=== PATIENT | female | born 1980 | race African-American/Black ===

== ENCOUNTER 2016-05-02 12:15 | Emergency (ER) | payer MEDICARE, OTHER ==
[~2016-05-02 12:15] MED LIST: *UNABLE1; ASAB PO; AUG875 PO; BLOOD PRESSURE RX PO; BRILINTA90 MG PO; CARDCD180 PO; CARDIZEM LA180 MG PO; CAT1 PO; CHOLESTEROL PO; COREG6 PO; CRESTOR5 MG PO; ELIQUIS 5 MG TAB5 MG PO; FERROUS SULF325 M1 PO; INSNOVN SC; IODOSORB TOP; IRON325 MG PO; ISORDIL20 PO; ISOSORB DIN30 MG PO; KDUR20 PO; L40 PO; LEVEMFLXPN SC; LEVEMIR SC; LEVOTHYROXIN50 MCG PO; LIPITOR10 PO; LOP50 PO; LORT7 PO; MAGOX4 PO; MCZ25 PO; NEUR100 PO; NORV10 PO; NOVOLOG SC; NOVOPEN SC; NXL6 PO; PLAVIX PO; POLYTRIM OPH; PREDFORTE OPH; PRENATAL VIT OTC PO; PRIN10 PO; PROAIR HFA INH; PROVHFA INH; SYN.05 PO; VENTOLIN HFA INH; ZESTRIL10 MG PO; ZOL50 PO
[2016-10-08] MEDS ORDERED: *UNABLE3 (01:25)
[2016-10-08] MEDS ORDERED: ASAB PO (01:26)
[2016-10-08] MEDS ORDERED: VENTOLIN HFA INH (01:26)
[2016-10-08] MEDS ORDERED: COREG6 PO (01:27)
[2016-10-08] MEDS ORDERED: LISINOPRIL PO (01:28)
[2016-10-08] MEDS ORDERED: LIPITOR10 PO (01:28)
[2016-10-08] MEDS ORDERED: CAT1 PO (01:29)
[2016-10-08] MEDS ORDERED: NOVOLOG SC (13:18)
[2016-10-08] MEDS ORDERED: PLAVIX PO (13:19)
[2016-10-08] MEDS ORDERED: LEVEMIR SC (13:19)
[2016-10-08] MEDS ORDERED: ISOSORB DIN30 MG PO (13:20)
[2016-10-08] MEDS ORDERED: PRIN10 PO (13:21)
[2016-10-08] MEDS ORDERED: PERCOCET 7.5/321 TAB PO (13:22)
[2016-10-15] MEDS ORDERED: ELIQUIS 2.5 MG2.5 MG PO (14:50)
== END 2016-05-02 12:35 | disposition home or self-care (01) ==
LOC: ER 12:15
PROC: 2W3QX1Z Immobilization of Right Lower Leg using Splint (ICD-10-PCS; principal; 2016-05-02)
DX: S83.91XA Sprain of unspecified site of right knee, initial encounter (principal); W10.9XXA Fall (on) (from) unspecified stairs and steps, initial encounter; E11.9 Type 2 diabetes mellitus without complications; Z99.2 Dependence on renal dialysis; E03.9 Hypothyroidism, unspecified; I48.91 Unspecified atrial fibrillation; I25.10 Atherosclerotic heart disease of native coronary artery without angina pectoris; H54.8 Legal blindness, as defined in USA; Z95.5 Presence of coronary angioplasty implant and graft; I49.9 Cardiac arrhythmia, unspecified; I12.9 Hypertensive chronic kidney disease with stage 1 through stage 4 chronic kidney disease, or unspecified chronic kidney disease; N18.9 Chronic kidney disease, unspecified
CPT/HCPCS: 73560-RT; 99283; A9270-GY

== ENCOUNTER 2016-06-06 20:50 | Emergency (ER) | payer MEDICARE, OTHER ==
[2016-10-08] MEDS ORDERED: *UNABLE3 (01:25)
[2016-10-08] MEDS ORDERED: ASAB PO (01:26)
[2016-10-08] MEDS ORDERED: VENTOLIN HFA INH (01:26)
[2016-10-08] MEDS ORDERED: COREG6 PO (01:27)
[2016-10-08] MEDS ORDERED: LIPITOR10 PO (01:28)
[2016-10-08] MEDS ORDERED: LISINOPRIL PO (01:28)
[2016-10-08] MEDS ORDERED: CAT1 PO (01:29)
[2016-10-08] MEDS ORDERED: NOVOLOG SC (13:18)
[2016-10-08] MEDS ORDERED: LEVEMIR SC (13:19)
[2016-10-08] MEDS ORDERED: PLAVIX PO (13:19)
[2016-10-08] MEDS ORDERED: ISOSORB DIN30 MG PO (13:20)
[2016-10-08] MEDS ORDERED: PRIN10 PO (13:21)
[2016-10-08] MEDS ORDERED: PERCOCET 7.5/321 TAB PO (13:22)
[2016-10-15] MEDS ORDERED: ELIQUIS 2.5 MG2.5 MG PO (14:50)
== END 2016-06-07 01:21 | disposition home or self-care (01) ==
LOC: ER 20:50
DX: M54.41 Lumbago with sciatica, right side (principal); I13.11 Hypertensive heart and chronic kidney disease without heart failure, with stage 5 chronic kidney disease, or end stage renal disease; E10.22 Type 1 diabetes mellitus with diabetic chronic kidney disease; N18.9 Chronic kidney disease, unspecified; J45.909 Unspecified asthma, uncomplicated; I48.91 Unspecified atrial fibrillation; I73.9 Peripheral vascular disease, unspecified; Z99.2 Dependence on renal dialysis; Z95.5 Presence of coronary angioplasty implant and graft; Z89.411 Acquired absence of right great toe; Z79.82 Long term (current) use of aspirin; Z79.4 Long term (current) use of insulin; Z79.899 Other long term (current) drug therapy
CPT/HCPCS: 72131; 81001; 84702; 96372; 99284; A9270-GY; J1170; J2360; J2550